=== PATIENT | female | born 1940 | race American Indian/Alaskan Native ===

== ENCOUNTER 2017-03-25 13:15 | Day surgery (SDC) | payer MEDICARE ==
[2017-03-25 15:51] VITALS: BP 153/76
[2017-03-25] MEDS ORDERED: ANCEF/STERILE WATER 2 GM/20 ML IV NR (16:00)
== END 2017-03-25 13:16 | disposition home or self-care (01) ==
LOC: OR 13:15
PROVIDERS: ATTEND Urology
DX: N20.0 Calculus of kidney (principal); I10 Essential (primary) hypertension; G25.81 Restless legs syndrome; G62.9 Polyneuropathy, unspecified; Z87.891 Personal history of nicotine dependence; Z98.890 Other specified postprocedural states; Z53.8 Procedure and treatment not carried out for other reasons

== ENCOUNTER 2017-04-08 09:52 | Day surgery (SDC) | payer MEDICARE ==
[~2017-04-08 09:52] MED LIST: ANCEF/STERILE WATER 2 GM/20 ML IV NR
--- NOTE | 2017-04-08 10:52 | Anesthesia Consultation ---
Anesthesia Consult and Med Hx Date of service: 04/08/17 - Airway Anesthetic Teeth Evaluation: Good, Crowns (top front, bottom molars) ROM Head & Neck: Adequate Mental/Hyoid Distance: Adequate Mallampati Class: Class II Intubation Access Assessment: Probably Good - Pulmonary Exam CTA: Yes - Cardiac Exam Cardiac Exam: RRR - Pre-Operative Health Status ASA Pre-Surgery Classification: ASA3 Proposed Anesthetic Plan: General - Pulmonary Hx Smoking: Yes (STOPPED X 18 YRS- 1 PPD X 30 YRS) Hx Asthma: No COPD: No Hx Sleep Apnea: No (MEKHI PRE SCREEN LOW RISK.) - Cardiovascular System Hx Hypertension: Yes (X 15 YRS) - Central Nervous System Hx Neuromuscular Disorder: Yes (tremor in right hand, RLS, neuropathy in legs) Hx Seizures: No CVA: No - Gastrointestinal Hx Gastroesophageal Reflux Disease: Yes - Endocrine Hx Renal Disease: No (stones) - Other Systems Hx Cancer: No
[2017-04-08] MEDS ORDERED: ZOFRAN IV PRN (10:53)
[2017-04-08] MEDS ORDERED: MORPHINE IV PRN (10:53)
--- NOTE | 2017-04-08 10:53 | Anesthesia Day of Surgery ---
Anesthesia Day of Surgery - Day of Surgery Patient Examined: Yes Patient is NPO: Yes
[2017-04-08] MEDS ORDERED: PEPCID PO NR (11:00)
[2017-04-08] MEDS ORDERED: VERSED IV NR (11:00)
[2017-04-08] MEDS ORDERED: NACL BACTERIOSTATIC INFILTRATI ONE (11:13)
[2017-04-08] MEDS ORDERED: NACL 0.9% 1000 ML 1,000 ML IV SCH (12:00)
[2017-04-08] MEDS ORDERED: DIPRIVAN 10 MG/ML IV ONE (12:27)
[2017-04-08] MEDS ORDERED: DILAUDID ONE (12:28)
[2017-04-08] MEDS ORDERED: ZOFRAN ONE (12:52)
[2017-04-08] MEDS ORDERED: XYLOCAINE MPF 2% ONE (12:52)
--- NOTE | 2017-04-08 13:09 | Short Stay Summary ---
Short Stay Documentation Date of service: 04/08/17 - History H&P: obtained from office - Allergies and Medications Current Medications: Allergies azithromycin [From Zithromax] Adverse Reaction (Verified 03/16/17 14:48) Diarrhea erythromycin base [From E-Mycin] Adverse Reaction (Verified 03/16/17 14:48) Diarrhea Home Medications Medication Instructions Recorded Confirmed Last Taken Type Aspirin [Lo-Dose Aspirin EC] 81 mg PO DAILY 03/16/17 04/08/17 03/26/17 History Gabapentin [Neurontin] 600 mg PO DAILY 03/16/17 04/08/17 2 Weeks Ago History ~03/25/17 Latanoprost 0.005% [Xalatan 0.005%] 1 drop OP QPM 03/16/17 04/08/17 04/07/17 History Timolol 0.5% [Timoptic] 1 drops OP BID 03/16/17 04/08/17 04/08/17 05:30 History Triamterene/Hydrochlorothiazid 1 each PO DAILY 03/16/17 04/08/17 04/08/17 05:30 History [Dyazide 37.5-25 Capsule] amLODIPine [Norvasc] 5 mg PO DAILY 03/16/17 04/08/17 04/08/17 05:30 History clonazePAM [ Klonopin] 0.5 mg PO DAILY 03/16/17 04/08/17 04/07/17 History prednisoLONE 1% SOD PHOSP(NF) 1 drops OP DAILY 03/16/17 04/08/17 04/07/17 History [Prednisol (Nf)] Diclofenac Sodium [Voltaren] 2 gram TRANSDERMA QDAY 03/25/17 04/08/17 03/25/17 History HYDROcodone/ACETAMINOPHEN 15 ml PO Q6HR 04/08/17 04/08/17 1 Week Ago History [Hydrocodon-Acetamin 7.5-325/15] ~04/01/17 Ranitidine HCl [Zantac 150 MG TAB] 75 mg PO BID 04/08/17 04/08/17 04/06/17 History Active Medications Cefazolin Sodium (Ancef/Sterile Water 2 Gm/20 Ml) 2 gm IV PREOP NR Stop: 04/08/17 23:59 Famotidine (Pepcid) 20 mg PO PREOP NR Stop: 04/08/17 23:00 Last Admin: 04/08/17 11:54 Dose: 20 mg Sodium Chloride (Nacl 0.9% 1000 Ml) 1,000 mls @ 75 mls/hr IV DIRECT LITZY Last Admin: 04/08/17 11:20 Dose: 75 mls/hr Midazolam HCl (Versed) 2 mg IV PREOP NR Stop: 04/08/17 23:59 Last Admin: 04/08/17 12:22 Dose: 2 mg Morphine Sulfate (Morphine) 2 mg IV Q10MIN PRN PRN Reason: Pain, Moderate (4-6) Ondansetron HCl (Zofran) 4 mg IV ONCE PRN PRN Reason: Nausea And Vomiting - Brief post op/procedure progress note Date of procedure: 04/08/17 Pre-op diagnosis: rt renal stone Post-op diagnosis: same Procedure: rt eswl Anesthesia: GETA Surgeon: SHRUTHI SCHULTZ Estimated blood loss: none Condition: stable - Hospital course Hospital course: areli craig, post op info - Disposition Condition at discharge: Stable Disposition: DC-01 TO HOME OR SELFCARE Short Stay Discharge Plan Follow up with: CRYSTAL SANTORO MD [Primary Care Provider] - 7 Days
[2017-04-08] MEDS ORDERED: NORCO 5/325 PO ONE (13:48)
--- NOTE | 2017-04-08 13:53 | Operative Report ---
PREOPERATIVE DIAGNOSIS: Right renal stone, 6-7 mm. POSTOPERATIVE DIAGNOSIS: Right renal stone, 6-7 mm. PROCEDURE: Extracorporal shock wave lithotripsy (staged procedure). SURGEON: Juma Balderas MD. ANESTHESIA: General. ESTIMATED BLOOD LOSS: Minimal. FLUIDS: Crystalloid. COMPLICATIONS: No complications. INDICATIONS: This patient is a 77-year-old female seen by Dr. Gibson in the office, found to have a 6-[address] due to her hematuria workup. She presents now for surgical intervention. Risks, benefits, and complications were explained. DESCRIPTION OF PROCEDURE: The patient was taken to the operative suite, placed in a supine position. After adequate general anesthesia, stone was localized in 2 planes using fluoroscopy. Extracorporal shock wave lithotripsy was administered with a maximum kV of 5 and 2500 shocks. Some fragmentation of her stone could be appreciated. She tolerated the procedure well. She was extubated and taken to recovery room. She will go home on [place], areli and follow up in the office. JOB# [id number] [facility]
--- NOTE | 2017-04-08 15:32 | Post Anesthesia Evaluation ---
- Post Anesthesia Evaluation Patient Participated: Yes Airway Patent: Yes Stable Respiratory Function: Yes Nausea/Vomiting: No Temp > 96.8F: Yes Pain Manageable: Yes Adequeate Hydration: Yes Anesthesia Complications: No Block Receding Appropriately: Not Applicable Patient on Ventilator: No
[2017-04-08 19:35] VITALS: BP 147/86
== END 2017-04-08 16:20 | disposition home or self-care (01) ==
LOC: OR 09:52
PROVIDERS: ATTEND Urology
DX: N20.0 Calculus of kidney (principal); I10 Essential (primary) hypertension; K21.9 Gastro-esophageal reflux disease without esophagitis; Z87.891 Personal history of nicotine dependence; Z79.82 Long term (current) use of aspirin; Z79.899 Other long term (current) drug therapy
CPT/HCPCS: 36415; 50590; 84132; J0690; J1170; J2250; J2405; J2704; J7030

== ENCOUNTER 2017-05-06 07:12 | Day surgery (SDC) | payer MEDICARE ==
[~2017-05-06 07:12] MED LIST changes: -ANCEF/STERILE WATER 2 GM/20 ML IV NR; +OMNIPAQUE 300 MG/50 ML (CATH LAB) IV ONE; +WATER FOR IRRIG STERILE IR ONE
--- NOTE | 2017-05-06 07:45 | Anesthesia Day of Surgery ---
Anesthesia Day of Surgery - Day of Surgery Patient Examined: Yes Patient H&P Reviewed: Yes Patient is NPO: Yes
--- NOTE | 2017-05-06 07:45 | Anesthesia Consultation ---
Anesthesia Consult and Med Hx Date of service: 05/06/17 - Airway Anesthetic Teeth Evaluation: Caps ROM Head & Neck: Adequate Mental/Hyoid Distance: Adequate Mallampati Class: Class III Intubation Access Assessment: Probably Good - Pulmonary Exam CTA: Yes - Cardiac Exam Cardiac Exam: RRR - Pre-Operative Health Status ASA Pre-Surgery Classification: ASA3 Proposed Anesthetic Plan: General - Pulmonary Hx Smoking: Yes (STOPPED X 18 YRS- 1 PPD X 30 YRS) Hx Asthma: No COPD: No Hx Sleep Apnea: No (MEKHI PRE SCREEN LOW RISK.) - Cardiovascular System Hx Hypertension: Yes (X 15 YRS) - Central Nervous System Hx Neuromuscular Disorder: Yes (tremor in right hand, RLS, neuropathy in legs) Hx Seizures: No CVA: No - Gastrointestinal Hx Gastroesophageal Reflux Disease: Yes - Endocrine Hx Renal Disease: No (stones) - Other Systems Hx Cancer: No - Additional Comments Anesthesia Medical History Comments: Recieved general anesthesia/LMA on 04/10/17. tolerated well
[2017-05-06] MEDS ORDERED: PERCOCET 5/325 PO PRN (07:46)
[2017-05-06] MEDS ORDERED: NACL BACTERIOSTATIC INFILTRATI ONE (07:57)
[2017-05-06] MEDS ORDERED: NACL 0.9% 1000 ML 1,000 ML IV SCH (08:00)
[2017-05-06] MEDS ORDERED: PEPCID IV NR (08:00)
[2017-05-06] MEDS ORDERED: ANCEF/STERILE WATER 2 GM/20 ML IV NR (09:00)
[2017-05-06] MEDS ORDERED: XYLOCAINE MPF 2% ONE (09:30)
[2017-05-06] MEDS ORDERED: DILAUDID ONE (09:31)
[2017-05-06] MEDS ORDERED: DIPRIVAN 10 MG/ML IV ONE (09:31)
[2017-05-06] MEDS ORDERED: WATER FOR IRRIG STERILE IR ONE (09:53)
[2017-05-06] MEDS ORDERED: OMNIPAQUE 300 MG/50 ML (CATH LAB) IV ONE (09:57)
[2017-05-06] MEDS ORDERED: LASIX ONE (10:18)
[2017-05-06] MEDS ORDERED: ZOFRAN ONE (10:18)
--- NOTE | 2017-05-06 10:28 | Post Operative Note ---
Date of procedure: 05/06/17 Pre-op diagnosis: r upj stone Post-op diagnosis: same Findings: as above Procedure: cysto stnet jstent ureteroscopy Anesthesia: GETA Surgeon: KILEY MACIAS Estimated blood loss: none Pathology: none Condition: stable Disposition: PACU
--- NOTE | 2017-05-06 10:31 | Discharge Summary ---
Short Stay Discharge Plan Activity: other (no straing ) Weight Bearing Status: Full Weight Bearing Diet: regular Special Instructions: other Durable Medical Equipment Needed Upon Discharge: other (pt had stent ) Follow up with: CRYSTAL SANTORO MD [Primary Care Provider] - 7 Days KILEY MACIAS MD [Staff Physician] - 7 Days
[2017-05-06] MEDS: DILAUDID IV PRN ×4 (10:40→11:10)
--- NOTE | 2017-05-06 11:37 | Operative Report ---
PREOPERATIVE DIAGNOSIS: Right ureteropelvic junction stone. POSTOPERATIVE DIAGNOSES: Right ureteropelvic junction stone with severe narrowing of the ureteropelvic junction. PROCEDURE: Cystoscopy, right retrograde, right distal ureteral balloon dilatation, right ureteroscopy with stone manipulation and double-J stent insertion. SURGEON: Erich Gibson M.D. ANESTHESIA: General. FINDINGS: This is a woman with intermittent right flank pain. We tried lithotripsy, but the stone did not fragment well. It cracked it, but it did not fragment well. She now presents for treatment. DESCRIPTION OF PROCEDURE: The patient was brought to the operating room and placed on the operating table. Following induction of anesthesia, placed in lithotomy position and prepped and draped in usual sterile fashion. Cystourethroscopy showed no bladder lesions. Retrograde showed very delicate ureter with a clear narrowing of the UPJ. A Glidewire coiled in the kidney and using the 10 cm balloon, we dilated the distal ureter. There was a wasting we could feel it with the wire and the ureter opened up nicely distally. Flexible ureteroscopy under fluoroscopic guidance, the stone pushed into the kidney, but the UPJ was too narrow to push the scope through. We did not want to traumatize. This was inflamed with the stone was obstructing and we decided to just place a 6-Wolof double J which coiled back on itself in the kidney. The patient tolerated the procedure well. We did not want to traumatize the UPJ. She will need a staged procedure to come back and laser the stone. The patient brought to recovery in stable condition. JOB# [id number] [facility]
--- NOTE | 2017-05-06 13:40 | Post Anesthesia Evaluation ---
- Post Anesthesia Evaluation Patient Participated: Yes Airway Patent: Yes Stable Respiratory Function: Yes Nausea/Vomiting: No Temp > 96.8F: Yes Pain Manageable: Yes Adequeate Hydration: Yes Anesthesia Complications: No
--- NOTE | 2017-05-06 16:00 | Fluoroscopy Report ---
Retrograde pyelogram, ureteral dilatation: Calculus. On the preliminary images there appears to be a calculus just lateral to the right L3 body transverse process. Injection of contrast demonstrated a normal-appearing right ureter with either displacement or obscuration of the calculus. There is good filling of the intrarenal collecting system. The possibility of a central mass in the kidney however is raised. A balloon was placed to dilate the distal ureter to the full diameter of the balloon. A laser was passed to the UP junction and the wire is extending into the renal pelvis. On subsequent images an internal stent was left in place. The calculus was either removed or displaced into the renal collecting system although is not clearly visualized due to contrast.
[2017-05-06 17:44] VITALS: BP 164/85
== END 2017-05-06 07:13 | disposition home or self-care (01) ==
LOC: OR 07:12
PROVIDERS: ATTEND Urology
DX: N20.1 Calculus of ureter (principal); N13.5 Crossing vessel and stricture of ureter without hydronephrosis; I10 Essential (primary) hypertension; G62.9 Polyneuropathy, unspecified; K21.9 Gastro-esophageal reflux disease without esophagitis; F17.210 Nicotine dependence, cigarettes, uncomplicated; Z79.82 Long term (current) use of aspirin; Z88.1 Allergy status to other antibiotic agents
CPT/HCPCS: 36415; 52330; 52332; 52344; 74420; 74485; 84132; A4217; C1726; C1758; C1769; C2617; J0690; J1170; J1940; J2405; J2704; J7030; Q9967

== ENCOUNTER 2017-05-27 08:58 | Day surgery (SDC) | payer MEDICARE ==
--- NOTE | 2017-05-27 10:18 | Anesthesia Consultation ---
Anesthesia Consult and Med Hx Date of service: 05/27/17 - Airway Anesthetic Teeth Evaluation: Caps ROM Head & Neck: Adequate Mental/Hyoid Distance: Adequate Mallampati Class: Class III Intubation Access Assessment: Probably Good - Pulmonary Exam CTA: Yes - Cardiac Exam Cardiac Exam: RRR - Pre-Operative Health Status ASA Pre-Surgery Classification: ASA3 Proposed Anesthetic Plan: General - Pulmonary Hx Smoking: Yes (STOPPED X 18 YRS- 1 PPD X 30 YRS) Hx Asthma: No COPD: No Hx Sleep Apnea: No (MEKHI PRE SCREEN LOW RISK.) - Cardiovascular System Hx Hypertension: Yes (X 15 YRS) - Central Nervous System Hx Neuromuscular Disorder: Yes (tremor in right hand, RLS, neuropathy in legs) Hx Seizures: No CVA: No - Gastrointestinal Hx Gastroesophageal Reflux Disease: Yes - Other Systems Hx Cancer: No - Additional Comments Anesthesia Medical History Comments: Recieved GA with LMA on 04/10/17 and 05/06/17. tolearted well. juan developed muscular pian in left leg after her surgery on 05/06/17. she went to the ER at another hospital. where she was worked up- EKG/ USG/MRI all negative ( per patient)
--- NOTE | 2017-05-27 10:18 | Anesthesia Day of Surgery ---
Anesthesia Day of Surgery - Day of Surgery Patient Examined: Yes Patient H&P Reviewed: Yes Patient is NPO: Yes
[2017-05-27] MEDS ORDERED: DIPRIVAN 10 MG/ML IV ONE (10:55)
[2017-05-27] MEDS ORDERED: NACL 0.9% 1000 ML 1,000 ML IV SCH (11:00)
[2017-05-27] MEDS ORDERED: ANCEF/STERILE WATER 2 GM/20 ML 2 GM/20 ML SYRINGE IV NR (11:00)
[2017-05-27] MEDS ORDERED: DILAUDID IV PRN (11:00)
[2017-05-27] MEDS ORDERED: ZOFRAN ONE (11:30)
[2017-05-27] MEDS ORDERED: XYLOCAINE MPF 2% ONE (11:34)
[2017-05-27] MEDS ORDERED: DILAUDID ONE (11:54)
[2017-05-27] MEDS ORDERED: WATER FOR IRRIG STERILE IR ONE (12:00)
--- NOTE | 2017-05-27 13:09 | Post Operative Note ---
Date of procedure: 05/27/17 Pre-op diagnosis: r renal stones Post-op diagnosis: same Findings: upj gravel Procedure: cysto ureteroscpy stent Anesthesia: GETA Surgeon: KILEY MACIAS Pathology: none Condition: stable
--- NOTE | 2017-05-27 13:11 | Discharge Summary ---
Short Stay Discharge Plan Activity: other Weight Bearing Status: Full Weight Bearing Diet: low fat, low salt Special Instructions: other Follow up with: CRYSTAL SANTORO MD [Primary Care Provider] - 7 Days KILEY MACIAS MD [Staff Physician] - 7 Days
[2017-05-27 13:26] VITALS: BP 129/71
--- NOTE | 2017-05-27 13:36 | Operative Report ---
PREOPERATIVE DIAGNOSIS: Right renal stones, UPJ narrowing. POSTOPERATIVE DIAGNOSIS: Right renal stones, UPJ narrowing. PROCEDURE: Cystoscopy, right retrograde, right ureteroscopy, with visualization of ____ with reinsertion double-J stent. SURGEON: Erich Gibson MD ANESTHESIA: General. FINDINGS: This is a woman with intermittent pain, evidence of stone disease. She now presents for followup treatment. All risks and complications were discussed. DESCRIPTION OF PROCEDURE: The patient was brought to the operating room and placed on the operating table. Following induction of anesthesia, placed in lithotomy position, prepped and draped in sterile fashion. Cystourethroscopy showed the stent, which was withdrawn. A wire coiled up in the kidney. Ureteroscopy up to the kidney showed a kidney which was a C-shaped renal pelvis which had multiple calices. It looked like there was a stone in the one of the upper pole of calices. We went at each scarlet, did not see any big stone, some gravel which we washed out. The laser was not used. The patient tolerated the procedure well. A double J stent coiled in the kidney and bladder, we left the string. Family was notified. The patient tolerated the procedure well and brought to recovery in stable condition. JOB# [id number] [facility]
--- NOTE | 2017-05-28 07:38 | Fluoroscopy Report ---
FLUORO RETROGRADE UROGRAPHY INDICATION: Calculus of right kidney. COMPARISON: 05/06/2017. FINDINGS: Total of 12 submitted fluoroscopic images. Procedure performed by Dr. Gibson. Initial senior private client advisor radiographs obtained at 12:24 PM, 05/27/2017 demonstrate a right double-J ureteral stent and questionable 1 cm right renal calculus, just above it. Multilevel spinal degenerative changes/mild levoscoliosis apex about L2-L3. Nonobstructive bowel gas pattern. Subsequently, right ureteral stent removed and ureteroscopy performed. No definite ureteral calculi with only gravel felt visualized. Mild right hydronephrosis. Slight separation of mid and lower pole intrarenal collecting systems may again be noted. Right ureteral stent replaced. CONCLUSION: Intraoperative fluoroscopic assistance provided for right ureteral stent removal, ureteroscopy and stent replacement with few incidental findings, including mild right hydronephrosis, as described. CT may also provide further information, if warranted. Thank you for the opportunity to participate in this patient's care.
== END 2017-05-27 13:51 | disposition home or self-care (01) ==
LOC: OR 08:58
PROVIDERS: ATTEND Urology
DX: N20.0 Calculus of kidney (principal); K21.9 Gastro-esophageal reflux disease without esophagitis; I10 Essential (primary) hypertension; G25.81 Restless legs syndrome; Z88.1 Allergy status to other antibiotic agents; Z87.891 Personal history of nicotine dependence
CPT/HCPCS: 36415; 52332; 74420; 84132; A4217; C1758; C1769; C2617; J0690; J1170; J2405; J2704; J7030; Q9967